=== PATIENT | male | born 1990 | race Caucasian/White ===

== ENCOUNTER 2024-08-13 12:10 | Emergency (ER) | payer SELFPAY ==
[~2024-08-13] VITALS: Ht 172.7 cm; Wt 87.5 kg
[2024-08-13] MEDS ORDERED: CLINDAMYCIN HC150 MG PO (12:52)
[2024-08-13] MEDS ORDERED: VISCOUS LIDOCAINE (12:52)
[2024-08-13] MEDS: KETOROLAC TROMETHAMINE 30 MG/ML VIAL IV STA (13:13)
[2024-08-13] MEDS: HYDROCODONE/APAP 5MG-325MG TAB PO ONE (14:12)
[2024-08-13 14:17] VITALS: PULSE 70; RESP 16; TEMP 98.9; O2SAT 98
[2024-08-13] MEDS ORDERED: AMOX TR-K CLV1 EAC2 PO (14:17)
[2024-08-13] MEDS ORDERED: KETOROLAC TROME10 MG PO (14:18)
[2024-08-13] MEDS ORDERED: PERIDEX473 M1 PO (14:21)
== END 2024-08-13 14:27 | disposition home or self-care (01) ==
LOC: FSED 12:26
DX: K08.89 Other specified disorders of teeth and supporting structures (principal); K04.7 Periapical abscess without sinus
CPT/HCPCS: 80053; 85025; 96374; 99284; J0696; J1885

== ENCOUNTER 2024-08-13 21:09 | Emergency (ER) | payer SELFPAY ==
[~2024-08-13] VITALS: Ht 172.7 cm; Wt 88.9 kg
[~2024-08-13 21:09] MED LIST: AMOX TR-K CLV1 EAC2 PO; CLINDAMYCIN HC150 MG PO; KETOROLAC TROME10 MG PO; PERIDEX473 M1 PO; VISCOUS LIDOCAINE
[2024-08-13 21:14] VITALS: PULSE 81; RESP 19; TEMP 99
[2024-08-13] MEDS: IBUPROFEN 600 MG TAB PO STA (21:40)
[2024-08-13 21:49] VITALS: BP 133/82; PULSE 81; RESP 19; TEMP 99; O2SAT 98
== END 2024-08-13 21:51 | disposition home or self-care (01) ==
LOC: FSED 21:18
DX: K04.7 Periapical abscess without sinus (principal); F17.210 Nicotine dependence, cigarettes, uncomplicated
CPT/HCPCS: 99283